=== PATIENT | female | born 1965 | race Caucasian/White ===

== ENCOUNTER 2018-01-28 09:25 | Emergency (ER) | payer BC ==
[2018-01-28 09:46] VITALS: BP 139/74
--- NOTE | 2018-01-28 09:48 | UC ---
Ear Complaint HPI - HPI Summary HPI Summary: 53 yo female c/o L ear pain since Monday (today is Monday). Worse in AM. Has been sleeping on her side. No fever / chills. No sore throat / sinus congestion / uri. No GI issues. No cough. Hx of both external and internal ear infection over the last couple years, most recently less than one year ago. - History of Current Complaint Chief Complaint: UCEar Stated Complaint: L EAR PAIN Time Seen by Provider: 01/28/18 09:47 Hx Obtained From: Patient Hx Last Menstrual Period: 01/21/18 Pain Intensity: 5 - Allergies/Home Medications Allergies/Adverse Reactions: Allergies Allergy/AdvReac Type Severity Reaction Status Date / Time No Known Allergies Allergy Verified 01/28/18 09:39 Home Medications: Home Medications Ibuprofen TAB* [Motrin TAB* 400 MG] 400 mg PO DAILY PRN 01/28/18 [History Confirmed 01/28/18] PMH/Surg Hx/FS Hx/Imm Hx Previously Healthy: Yes - Surgical History Surgical History: Yes Surgery Procedure, Year, and Place: 2 c-sections, ectopic - Family History Known Family History: Positive: None - Social History Alcohol Use: Rare Substance Use Type: None Smoking Status (MU): Never Smoked Tobacco Review of Systems Constitutional: Negative Skin: Negative Eyes: Negative ENT: Other - see hpi Respiratory: Negative Cardiovascular: Negative Gastrointestinal: Negative Genitourinary: Negative Motor: Negative Neurovascular: Negative Musculoskeletal: Negative Neurological: Negative Psychological: Negative Is Patient Immunocompromised?: No All Other Systems Reviewed And Are Negative: Yes Physical Exam Triage Information Reviewed: Yes Appearance: Well-Appearing, Well-Nourished Vital Signs: Initial Vital Signs Temp 97.9 F 01/28/18 09:41 Pulse 95 01/28/18 09:41 Resp 17 01/28/18 09:41 BP 139/74 01/28/18 09:41 Pulse Ox 100 01/28/18 09:41 Vital Signs Reviewed: Yes Eye Exam: Normal ENT: Positive: Other - Mild post pharyng redness, no sores, no exudates, uvula midline. R TM nad, good light reflex L TM dark lion + rtx'd. EAC swollen, mild red, with quinton purulence or drainage Neck exam: Normal Neck: Positive: Supple, Nontender, No Lymphadenopathy Respiratory Exam: Normal Respiratory: Positive: Chest non-tender, Lungs clear, Normal breath sounds, No respiratory distress, No accessory muscle use Cardiovascular Exam: Normal Cardiovascular: Positive: RRR, No Murmur, Pulses Normal, Brisk Capillary Refill Abdominal Exam: Normal Abdomen Description: Positive: Nontender Musculoskeletal Exam: Normal - gait steady Neurological Exam: Normal - grossly nonfocal, can hear out of both ears. Psychological Exam: Normal - conversing easily and appropriately Skin Exam: Normal - no visible or reported rash Ear Complaint Course/Dx - Course Course Of Treatment: Reviewed phys exam findings, and coa / tx plan. Consider ENT referral. She has appt with PCP this week, will have ear rechecked at that time. Has dental appt in Feb, will ask to check for TMJ. Questions as posed answered to the best of my ability. - Differential Dx/Diagnosis Provider Diagnoses: Serous otitis. Otalgia Discharge - Sign-Out/Discharge Documenting (check all that apply): Patient Departure All imaging exams completed and their final reports reviewed: No Studies - Discharge Plan Condition: Stable Disposition: HOME Prescriptions: Azithromyxin SHELBIE (NF) [Z-Shelbie (Zithromax) 250 mg tabs #6] 2 tab PO .TODAY, THEN 1 DAILY #6 tab Patient Education Materials: Antihistamine (By mouth), Temporomandibular Disorder (ED), Serous Otitis Media (ED) Referrals: Belinda Aaron MD [Primary Care Provider] - Additional Instructions: Follow up with your primary care physician, per routine, this week. Follow up with your dentist next month as scheduled - ask about check for TMJ ( possibility - although not certain. See above re information). Seek medical attention for worse or new problems. - Billing Disposition and Condition Condition: STABLE Disposition: Home
== END 2018-01-28 10:16 | disposition home or self-care (01) ==
LOC: UCCORT 09:25
DX: H65.92 Unspecified nonsuppurative otitis media, left ear (principal)
CPT/HCPCS: 99212; G0463

== ENCOUNTER 2019-04-11 15:58 | Emergency (ER) | payer BC ==
[2019-04-11 19:14] VITALS: BP 130/71
--- NOTE | 2019-04-11 19:18 | UC ---
Ear Complaint HPI - HPI Summary HPI Summary: 54 yo female with the onset of right ear pain/fullness x days recent URI - History of Current Complaint Chief Complaint: UCRespiratory Stated Complaint: RIGHT EAR PAIN Time Seen by Provider: 04/11/19 17:43 Hx Obtained From: Patient Hx Last Menstrual Period: 01/21/18 Onset/Duration: Gradual Onset Severity Initially: Mild Severity Currently: Mild Pain Intensity: 3 Pain Scale Used: 0-10 Numeric Aggravating Factors: Nothing Alleviating Factors: Nothing Associated Signs/Symptoms: Positive: URI Symptoms - Allergies/Home Medications Allergies/Adverse Reactions: Allergies Allergy/AdvReac Type Severity Reaction Status Date / Time No Known Allergies Allergy Verified 04/11/19 19:10 PMH/Surg Hx/FS Hx/Imm Hx Previously Healthy: Yes - Surgical History Surgical History: Yes Surgery Procedure, Year, and Place: 2 c-sections, ectopic - Family History Known Family History: Positive: None, Non-Contributory - Social History Alcohol Use: Occasionally Substance Use Type: None Smoking Status (MU): Never Smoked Tobacco Review of Systems All Other Systems Reviewed And Are Negative: Yes Constitutional: Positive: Negative Skin: Positive: Negative Eyes: Positive: Negative ENT: Positive: Ear Ache Respiratory: Positive: Negative Cardiovascular: Positive: Negative Gastrointestinal: Positive: Negative Genitourinary: Positive: Negative Motor: Positive: Negative Neurovascular: Positive: Negative Musculoskeletal: Positive: Negative Neurological: Positive: Negative Psychological: Positive: Negative Physical Exam Triage Information Reviewed: Yes Appearance: Well-Appearing, No Pain Distress, Well-Nourished Vital Signs: Initial Vital Signs Temp 98.3 F 04/11/19 19:10 Pulse 74 04/11/19 19:10 Resp 16 04/11/19 19:10 BP 130/71 04/11/19 19:10 Pulse Ox 99 04/11/19 19:10 Vital Signs Reviewed: Yes Eyes: Positive: Conjunctiva Clear ENT: Positive: Hearing grossly normal, Nasal congestion, TM bulging - R, TM dull - R, Uvula midline. Negative: Nasal drainage, Tonsillar swelling, Tonsillar exudate, Trismus, Muffled voice, Hoarse voice Dental Exam: Normal Neck: Positive: Supple, Nontender, No Lymphadenopathy Respiratory: Positive: Lungs clear, Normal breath sounds, No respiratory distress Cardiovascular: Positive: RRR, No Murmur Abdomen Description: Positive: Nontender, No Organomegaly. Negative: CVA Tenderness (R), CVA Tenderness (L) Bowel Sounds: Positive: Present Musculoskeletal: Positive: ROM Intact, No Edema Neurological: Positive: Alert Psychological Exam: Normal Skin Exam: Normal Ear Complaint Course/Dx - Differential Dx/Diagnosis Provider Diagnosis: Right serous otitis media Discharge ED - Sign-Out/Discharge Documenting (check all that apply): Patient Departure All imaging exams completed and their final reports reviewed: No Studies - Discharge Plan Condition: Stable Disposition: HOME Prescriptions: Fluticasone NASAL SPRAY 50MCG* [Flonase NASAL SPRAY 50MCG*] 2 spray BOTH NARES BID #1 btl Patient Education Materials: Serous Otitis Media (ED) Referrals: Belinda Aaron MD [Primary Care Provider] - 2 Weeks (if not better) - Billing Disposition and Condition Condition: STABLE Disposition: Home
== END 2019-04-11 19:45 | disposition home or self-care (01) ==
LOC: UCCORT 15:58
DX: H65.91 Unspecified nonsuppurative otitis media, right ear (principal)
CPT/HCPCS: 99212; G0463